=== PATIENT | female | born 1950 | race Asian ===

== ENCOUNTER → 2016-11-26 | Day surgery (SDC) | payer OTHER ==
--- NOTE | 2016-11-27 16:09 | PATH ---
Cytology Non-Gynecological Report Patient Name: MICHAEL CARRINGTON [facility]. Rec. #: [id number] /Age/Gender: 1950 (Age: 66) / F Account: [id number] Location: RADIOLOGY Taken: 11/26/2016 Received: 11/26/2016 Reported: 11/27/2016 Physicians: Oliverio Curry Specimen(s) Received RIGHT THYROID FNA Clinical History Right thyroid nodule, 4.3 x 2.1 x 2.7 cm Final Diagnosis THYROID GLAND, RIGHT LOBE, US GUIDED FINE NEEDLE ASPIRATION BIOPSY: SATISFACTORY FOR EVALUATION. NO MALIGNANT CELLS IDENTIFIED. 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 Comment: The smears and the cell block show clusters of bland appearing follicular epithelial cells arranged in mixed micro-and micro-follicles in flat sheets. Some cells show Hurthle cell (oncocytic) change. Macrophages are present indicative of cystic change. Colloid is present. Electronically Signed Gary Jama M.D. Gross Description Received are four air dried smears, four smears in 95% alcohol, and 20 cc of bloody fluid in formalin. Four diff-quik stained slides, four Pap stained slides and one cell block are made.
== END | disposition home or self-care (01) ==
LOC: JRADIR 08:08
PROVIDERS: ATTEND Internal Medicine
PROC: 0GBH3ZX Excision of Right Thyroid Gland Lobe, Percutaneous Approach, Diagnostic (ICD-10-PCS; principal; 2016-11-26)
PROC: BG44ZZZ Ultrasonography of Thyroid Gland (ICD-10-PCS; 2016-11-26)
DX: E04.1 Nontoxic single thyroid nodule (principal)
CPT/HCPCS: 10022; 76942; 88173; 88305-TC

== ENCOUNTER 2017-05-30 14:55 | Emergency (ER) | payer OTHER ==
[2017-05-30 15:02] VITALS: BP 132/77; PULSE 73; TEMP 97.7; BMI 19.8
--- NOTE | 2017-05-30 15:53 | PDOC ---
History of Present Illness - General Chief Complaint: Back Pain Stated Complaint: RIGHT SIDE PAIN Time Seen by Provider: 05/30/17 15:27 - History of Present Illness Initial Comments: 05/30/17 15:51 CHIEF COMPLAINT: R flank pain HISTORY OF PRESENT ILLNESS: 67 yo F with hx of "borderline diabetes" and "microscopic hematuria" presents to [facility] with R sided flank pain. Patient states she has had this discomfort before but today it was so painful she felt like she could not move. She states she has had a "full work up" with a urologist in the past but has not had any diagnosis or explanation for her microscopic hematuria. She denies any pain with urination, urinary frequency, unusual discharge, fever, chills, vomiting, diarrhea. No recent travel or sick contacts. PAST MEDICAL HISTORY: Denies past medical history FAMILY HISTORY: Denies SOCIAL HISTORY: Denies tobacco, alcohol, illicit drug use. SURGICAL HISTORY: Denies ALLERGIES: No known drug allergies REVIEW OF SYSTEMS General/Constitutional: Denies fever or chills. Denies weakness, weight change. HEENT: Denies change in vision. Denies ear pain or discharge. Denies sore throat. Cardiovascular: Denies chest pain or shortness of breath. Respiratory: Denies cough, wheezing, or hemoptysis. Gastrointestinal: Denies nausea, vomiting, diarrhea or constipation. Genitourinary: Denies dysuria, frequency, or change in urination. Musculoskeletal: R sided flank pain. Skin and breasts: Denies rash or easy bruising. Neurologic: Denies headache, vertigo, loss of consciousness, or loss of sensation. PHYSICAL EXAM General Appearance: Well-appearing, appropriately dressed. No apparent distress. HEENT: EOMI, PERRLA. No conjunctival pallor. No photophobia, scleral icterus. Respiratory/Chest: Lungs CTAB. Cardiovascular: RRR. S1, S2. Gastrointestinal/Abdominal: Normal bowel sounds. Abdomen soft, non-distended. No tenderness or rebound tenderness. No organomegaly, pulsatile mass, guarding , hernia, hepatomegaly, splenomegaly. Musculoskeletal/Extremities: R CVA tenderness. FROM of all extremities, normal capillary refill. Pelvis Stable. No tenderness to extremities, pedal edema, swelling, erythema or deformity. Integumentary: Appropriate color, dry, warm. No cyanosis, erythema, jaundice or rash Neurologic: student officer II-XII intact. Fully oriented, alert. Appropriate mood/affect. Motor strength 5/5. No appreciable EOM palsy, facial droop or sensory deficit. Past History - Past Medical History Allergies/Adverse Reactions: Allergies Allergy/AdvReac Type Severity Reaction Status Date / Time No Known Allergies Allergy Unverified 04/27/12 13:30 Home Medications: Ambulatory Orders Ibuprofen [Motrin -] 400 mg PO TID PRN #21 tablet 05/30/17 COPD: No - Suicide/Smoking/Psychosocial Hx Smoking History: Never smoked Have you smoked in the past 12 months: No Information on smoking cessation initiated: No Hx Alcohol Use: No Drug/Substance Use Hx: No Substance Use Type: None *Physical Exam - Vital Signs Last Vital Signs Temp Pulse Resp BP Pulse Ox 97.7 F 73 18 132/77 99 05/30/17 14:56 05/30/17 14:56 05/30/17 14:56 05/30/17 14:56 05/30/17 14:56 Medical Decision Making - Medical Decision Making 05/30/17 16:27 67 yo F with hx of "borderline diabetes" and "microscopic hematuria" presents to [facility] with R sided flank pain. -UA, UCx UA 4 RBC Will order spiral CT r/o kidney stones -[address] positive for 2 mm nonobstructing calculi in left kidney, mildly dilated common bile duct measuring 7-8 mm. Patient continues to deny abdominal pain, nausea, or vomiting. Advised patient to f/u with GI and nephrology THIS WEEK. Advised patient of signs and symptoms for return to ER; patient verbalized understanding and agrees to plan. *DC/Admit/Observation/Transfer Diagnosis at time of Disposition: Right flank pain - Discharge Dispostion Disposition: HOME Condition at time of disposition: Stable Admit: No - Prescriptions Prescriptions: Ibuprofen [Motrin -] 400 mg PO TID PRN #21 tablet PRN Reason: Pain - Referrals Referrals: Bindu Ames MD [Staff Physician] - Silvino Ibarra MD [Non Staff, Medical] - Jagruti Patel MD [Staff Physician] - - Patient Instructions Printed Discharge Instructions: DI for Flank Pain Additional Instructions: Please follow up with GI and nephrology THIS WEEK for further evaluation of your symptoms. If you develop any abdominal pain, nausea, vomiting, fever, chills, or any new or worsening symptoms, please return to the ER. - Post Discharge Activity
[2017-05-30 16:07] LABS: URINE APPEARANCE CLEAR; URINE BILIRUBIN NEGATIVE (NEGATIVE); URINE BLOOD NEGATIVE (NEGATIVE); URINE COLOR STRAW; URINE GLUCOSE (UA) NEGATIVE (NEGATIVE); URINE KETONE NEGATIVE (NEGATIVE); URINE LEUK ESTERASE TRACE (NEGATIVE); URINE NITRITE NEGATIVE (NEGATIVE); URINE PROTEIN NEGATIVE (NEGATIVE); URINE UROBILINOGEN NEGATIVE mg/dL (0.2-1.0)
[2017-05-30 16:10] LABS: URINE MUCUS RARE
[2017-05-30] MEDS ORDERED: KETOROLAC TROMETHAMINE 60 MG/2 ML VIAL IM ONE (16:12)
[2017-05-30] MEDS ORDERED: KETOROLAC TROMETHAMINE 60 MG/2 ML VIAL ONE (16:17)
== END 2017-05-30 17:26 | disposition home or self-care (01) ==
LOC: JERFT 14:55
PROC: 3E0233Z Introduction of Anti-inflammatory into Muscle, Percutaneous Approach (ICD-10-PCS; principal; 2017-05-30)
DX: N20.0 Calculus of kidney (principal); R31.29 Other microscopic hematuria; R10.31 Right lower quadrant pain
CPT/HCPCS: 74176; 81003; 81015; 87086; 96372; 99281-25

== ENCOUNTER 2023-09-16 09:23 | Day surgery (SDC) | payer OTHER ==
[2023-09-11 17:27] VITALS: BMI 22.6
[2023-09-16] MEDS ORDERED: CYCLOPENTOLATE 2% OPHTH SOLN 2 ML BOTTLE ONE (09:36)
[2023-09-16] MEDS ORDERED: TROPICAMIDE 1% OPHTH SOLN 15 ML BOTTLE ONE (09:36)
[2023-09-16] MEDS ORDERED: PHENYLEPHRINE 2.5% OPTHALMIC DROP 2ML BOTTLE ONE (09:37)
[2023-09-16] MEDS ORDERED: CIPROFLOXACIN 0.3% EYE DROPS 5 ML BOTTLE ONE (09:37)
[2023-09-16] MEDS ORDERED: MIDAZOLAM HCL 2 MG/2 ML SINGLE DOSE VIAL ONE (09:52)
[2023-09-16] MEDS ORDERED: NEO/POLYMYX B SULF/DEXAMETH OPHTHALMIC 5ML BOTTLE ONE (09:55)
[2023-09-16] MEDS ORDERED: BSS (NA/CA/MG/K) BALANCED SALT SOLUTION OPHTH SOLN 15 ML BOTTLE ONE (09:55)
[2023-09-16] MEDS ORDERED: CARBACHOL 0.01% INTRA-OCULAR 1.5 ML VIAL ONE (09:55)
[2023-09-16] MEDS ORDERED: EPINEPHrine/PF 1 MG/1 ML (1:1,000) AMPULE ONE (09:55)
[2023-09-16] MEDS ORDERED: LIDOCAINE 1% P/F 10 MG/ML VIAL ONE (09:55)
[2023-09-16] MEDS ORDERED: TETRACAINE 0.5% OPHTH SOLN 2 ML BOTTLE ONE (09:55)
[2023-09-16] MEDS: TROPICAMIDE 1% OPHTH SOLN 15 ML BOTTLE OD ONE ×3 (10:00→10:10)
[2023-09-16] MEDS: CIPROFLOXACIN 0.3% EYE DROPS 5 ML BOTTLE OD ONE ×3 (10:00→10:10)
[2023-09-16] MEDS: PHENYLEPHRINE 2.5% OPHTH SOLN 15 ML BOTTLE OD ONE ×3 (10:00→10:10)
[2023-09-16] MEDS: CYCLOPENTOLATE 2% OPHTH SOLN 2 ML BOTTLE OD ONE ×3 (10:00→10:10)
[2023-09-16 12:00] VITALS: BP 127/59; TEMP 97.5
[2023-09-16 12:47] VITALS: PULSE 68; RESP 18
== END 2023-09-16 12:33 | disposition home or self-care (01) ==
LOC: FASU 09:23
PROVIDERS: ATTEND Ophthalmology
PROC: 08RJ3JZ Replacement of Right Lens with Synthetic Substitute, Percutaneous Approach (ICD-10-PCS; principal; 2023-09-16 11:36)
DX: H26.8 Other specified cataract (principal)
CPT/HCPCS: 66984; V2632

== ENCOUNTER 2023-10-07 06:49 | Day surgery (SDC) | payer OTHER ==
[2023-10-01 13:41] VITALS: BMI 22.6
[2023-10-07] MEDS: TROPICAMIDE 1% OPHTH SOLN 15 ML BOTTLE ONE (07:15)
[2023-10-07] MEDS: CYCLOPENTOLATE 2% OPHTH SOLN 2 ML BOTTLE ONE (07:15)
[2023-10-07] MEDS: PHENYLEPHRINE 2.5% OPTHALMIC DROP 2ML BOTTLE ONE (07:15)
[2023-10-07] MEDS: CIPROFLOXACIN 0.3% EYE DROPS 5 ML BOTTLE ONE (07:15)
[2023-10-07 07:19] VITALS: RESP 18
[2023-10-07] MEDS ORDERED: NEO/POLYMYX B SULF/DEXAMETH OPHTHALMIC 5ML BOTTLE ONE (07:21)
[2023-10-07] MEDS ORDERED: CARBACHOL 0.01% INTRA-OCULAR 1.5 ML VIAL ONE (07:21)
[2023-10-07] MEDS ORDERED: BSS (NA/CA/MG/K) BALANCED SALT SOLUTION OPHTH SOLN 15 ML BOTTLE ONE (07:21)
[2023-10-07] MEDS ORDERED: EPINEPHrine/PF 1 MG/1 ML (1:1,000) AMPULE ONE (07:21)
[2023-10-07] MEDS ORDERED: TETRACAINE 0.5% OPHTH SOLN 2 ML BOTTLE ONE (07:21)
[2023-10-07] MEDS ORDERED: LIDOCAINE 1% P/F 10 MG/ML VIAL ONE (07:21)
[2023-10-07] MEDS ORDERED: MIDAZOLAM HCL 2 MG/2 ML SINGLE DOSE VIAL ONE (08:37)
[2023-10-07] MEDS ORDERED: ONDANSETRON 4 MG/2 ML VIAL ONE (08:37)
[2023-10-07 09:37] VITALS: TEMP 97.9
[2023-10-07 09:55] VITALS: BP 105/62; PULSE 62
== END 2023-10-07 10:00 | disposition home or self-care (01) ==
LOC: FASU 06:49
PROVIDERS: ATTEND Ophthalmology
PROC: 08RK3JZ Replacement of Left Lens with Synthetic Substitute, Percutaneous Approach (ICD-10-PCS; principal; 2023-10-07 08:58)
DX: H26.8 Other specified cataract (principal)
CPT/HCPCS: 66984; V2632